=== PATIENT | female | born 1975 | race Caucasian/White ===

== ENCOUNTER 2020-06-05 13:54 | Emergency (ER) | payer BC, SELFPAY ==
[~2020-06-05] VITALS: Ht 157.5 cm; Wt 74.8 kg
[~2020-06-05 13:54] MED LIST: BUPR-120 PO; DULO20CA PO; DULO60CA41 PO; ESTR2TAB5 PO; LAM100 PO; MIRT30TA PO; NEU300 PO; OLAN5TAB3 PO; SAPHRIS PO
[2020-06-05 13:58] VITALS: BP_SYST 146
== END 2020-06-05 14:29 | disposition home or self-care (01) ==
LOC: SED 13:54
DX: M25.512 Pain in left shoulder (principal); F41.9 Anxiety disorder, unspecified; K21.9 Gastro-esophageal reflux disease without esophagitis; Z88.8 Allergy status to other drugs, medicaments and biological substances; Z79.899 Other long term (current) drug therapy
CPT/HCPCS: 93005; 99283

== ENCOUNTER 2024-02-17 20:45 | Emergency (ER) | payer BC ==
[~2024-02-17] VITALS: Ht 170.2 cm; Wt 99.8 kg
[~2024-02-17 20:45] MED LIST changes: -DULO60CA41 PO; +DULO60CA42 PO; -MIRT30TA PO; +[UNRECOGNIZED DRUG - CODE] PO
[2024-02-17 20:59] VITALS: BP_SYST 185; PULSE 71; RESP 24; TEMP 98.5; O2SAT 98
[2024-02-17] MEDS: DIPHENHYDRAMINE HCL 50 MG CAPSULE PO ONE (22:13)
[2024-02-18] MEDS: HALOPERIDOL LACTATE 5 MG/ML VIAL IM ONE (00:33)
[2024-02-18] MEDS: DIPHENHYDRAMINE INJ 50 MG/ML VIAL IM ONE (00:33)
[2024-02-18 00:51] VITALS: BP_SYST 145; PULSE 79; RESP 18; TEMP 98.5; O2SAT 98
== END 2024-02-18 00:51 | disposition home or self-care (01) ==
LOC: SED 20:45
DX: G24.9 Dystonia, unspecified (principal); K21.9 Gastro-esophageal reflux disease without esophagitis; Z88.8 Allergy status to other drugs, medicaments and biological substances; Z79.899 Other long term (current) drug therapy
CPT/HCPCS: 99284; 96372; Q0163; J1200; J1630